=== PATIENT | female | born 1960 | race African-American/Black ===

== ENCOUNTER 2018-10-25 06:38 | Day surgery (SDC) | payer MEDICAID ==
[~2018-10-25] VITALS: Ht 172.7 cm; Wt 95.3 kg
[2018-10-25] MEDS ORDERED: LIDOCAINE 2% 100 MG/5 ML UJET TP ONE (08:14)
[2018-10-25] MEDS ORDERED: fentaNYL 0.05 MG/ML VIAL ONE (08:14)
[2018-10-25] MEDS ORDERED: MIDAZOLAM 2 MG/2 ML VIAL ONE (08:46)
== END 2018-10-25 07:32 | disposition home or self-care (01) ==
LOC: MDS 06:38 → MMU 06:49 → MDS 07:32
PROVIDERS: ATTEND Internal Medicine Gastroenterology
DX: Z12.11 Encounter for screening for malignant neoplasm of colon (principal); D12.3 Benign neoplasm of transverse colon; E66.9 Obesity, unspecified; Z68.31 Body mass index [BMI] 31.0-31.9, adult; Z88.8 Allergy status to other drugs, medicaments and biological substances; Z98.890 Other specified postprocedural states
CPT/HCPCS: 45380; 45385; J3010; 88305; J2250